=== PATIENT | male | born 1955 | race Caucasian/White ===

== ENCOUNTER 2016-07-16 08:17 | Day surgery (SDC) | payer SELFPAY ==
[2016-07-16] VITALS (505 sets, daily range): BP systolic 105–141; BP diastolic 60–95; PULSE 20–77; TEMP 97.1–98.2; O2SAT 92–100
[~2016-07-16] VITALS: Ht 172.7 cm; Wt 86.1 kg
[2016-07-16 09:08] LABS: HEMATOCRIT 40.8 % (42.0-52.0); HEMOGLOBIN 13.9 g/dl (13.5-18.0); MEAN CELL VOLUME 89 fl (80.0-100.0); MEAN CORPUSCULAR HEMOGLOBIN 30 pg (27.0-31.0); MEAN CORPUSCULAR HGB CONC 34 g/dl (33.0-37.0); MEAN PLATELET VOLUME 10.2 fl (7.4-10.4); PLATELET COUNT 277 K/mm3 (130-400); RED BLOOD COUNT 4.59 M/mm3 (4.20-5.60); REDCELL DISTRIBUTION WIDTH-CV 12.6 % (11.5-14.5); WHITE BLOOD COUNT 7.6 K/mm3 (4.8-10.8)
[2016-07-16] MEDS ORDERED: PLAVIX 75MG TAB75 MG PO (09:10)
[2016-07-16] MEDS ORDERED: ASPIRIN E.C. 8181 MG PO (09:10)
[2016-07-16 09:11] LABS: CALCIUM 9.8 mg/dL (8.4-10.2); CREATININE, serum 0.72 mg/dL (0.66-1.25); POTASSIUM 4.3 mmol/L (3.4-5.0)
[2016-07-16] MEDS ORDERED: OMEGA-31 SGL PO (09:11)
[2016-07-16] MEDS ORDERED: TOPROL XL 25MG25 MG PO (09:11)
[2016-07-16 09:12] LABS: PROTHROMBIN TIME 11.6 SECONDS (9.7-12.8)
[2016-07-16] MEDS ORDERED: NITROSTAT0.4 MG/TAB SL (09:12)
[2016-07-16] MEDS ORDERED: PRAVACHOL 20MG20 MG PO (09:13)
[2016-07-17] VITALS (426 sets, daily range): BP systolic 92–130; BP diastolic 56–57; PULSE 66–85; TEMP 98–98.1; O2SAT 93–100
[2016-07-17 05:48] LABS: BASO % 0.2 % (0.0-2.0); GRAN # 11.4 (1.4-6.5); GRAN % 87.7 % (42.2-75.2); HEMATOCRIT 40.2 % (42.0-52.0); HEMOGLOBIN 13.6 g/dl (13.5-18.0); LYMPH # 1.2 (1.2-3.4); LYMPH % 9.2 % (20.0-51.0); MEAN CELL VOLUME 88 fl (80.0-100.0); MEAN CORPUSCULAR HEMOGLOBIN 30 pg (27.0-31.0); MEAN CORPUSCULAR HGB CONC 34 g/dl (33.0-37.0); MEAN PLATELET VOLUME 10.3 fl (7.4-10.4); MONO # 0.3 (0.1-0.6); MONO % 2.4 % (1.7-9.3); PLATELET COUNT 279 K/mm3 (130-400); RED BLOOD COUNT 4.59 M/mm3 (4.20-5.60); REDCELL DISTRIBUTION WIDTH-CV 12.3 % (11.5-14.5)
[2016-07-17 06:07] LABS: CALCIUM 9.5 mg/dL (8.4-10.2); CREATININE, serum 0.75 mg/dL (0.66-1.25); POTASSIUM 4.1 mmol/L (3.4-5.0)
== END 2016-07-17 10:10 | disposition home or self-care (01) ==
LOC: EUO 08:17 → COL.RAD 08:30 → EUO 12:45 → ICU 12:45 → IMCU 21:05 → ICU 21:05 → EUO 07-17 10:10
PROVIDERS: Internal Medicine Cardiovascular Disease
DX: I25.110 Atherosclerotic heart disease of native coronary artery with unstable angina pectoris (principal); E78.00 Pure hypercholesterolemia, unspecified; I10 Essential (primary) hypertension; Z87.891 Personal history of nicotine dependence
CPT/HCPCS: OP; C1725; C1769; C1874; C1887; C9600; C9601; J0583; J1200; J2250; J2930; J3010; Q9967